=== PATIENT | female | born 1985 | race Caucasian/White ===

== ENCOUNTER 2016-08-29 20:28 | Emergency (ER) | payer BC ==
[~2016-08-29] VITALS: Ht 165.1 cm; Wt 85.2 kg
[~2016-08-29 20:28] MED LIST: ALEVE PM CAPLE1 EACH PO; ATHENOL325 MG PO; CELEXA2 MG/1 ML PO; CITALOPRAM HBR20 MG PO; NOHOMEMEDS; ORTHO TRI-CY1 TABLE1 PO; TESSALON PERLE100 MG PO; TRINESSA1 EACH PO; ULTRAM50 MG PO; ZYRTEC SYRUP1 MG/ML PO
[2016-08-29 21:19] LABS: ADD MIUA? YES; BILIRUBIN NEGATIVE; BLOOD LARGE; COLOR YELLOW ((YELLOW)); GLUCOSE (STRIP) NEGATIVE; KETONES NEGATIVE; LEUKOCYTES NEGATIVE; NITRITE NEGATIVE; PROTEIN (STRIP) 30; SPECIFIC GRAVITY 1.029 (1.000-1.030); UROBILINOGEN 0.2 MG/DL (0.2-1.0)
[2016-08-29 21:25] LABS: BACTERIA RARE /HPF; EPITHELIAL CELLS 1+ /HPF; MUCUS 4+ /LPF; RED BLOOD CELLS TNTC /HPF (0-5); UCUL ADDED? NO; WHITE BLOOD CELLS 0-5 /HPF (0-5)
[2016-08-29 21:41] LABS: HEMATOCRIT 42.8 % (36.0-46.0); MCHC 32.2 G/DL (30.0-36.0); MEAN PLAT.VOLUME 9.5 uM^3 (9.5-12.4); PLATELET COUNT 316 K/uL (156-360); RBC DIS.WIDTH-CV 11.8 % (11.8-14.6); RBC DIS.WIDTH-SD 40.8 % (39-53); WHITE BLOOD COUNT 7.3 K/uL (4.1-10.2)
[2016-08-29 21:51] LABS: CHLORIDE 105 mEq/L (99-109); POTASSIUM 3.7 mEq/L (3.7-5.4); SODIUM 141 mEq/L (136-147)
[2016-08-29 21:54] LABS: GLUCOSE 81 mg/dL (70-99)
[2016-08-29 21:55] LABS: ANION GAP 13 MEQ/L (2-14)
[2016-08-29 21:57] LABS: ALKALINE PHOSPHATASE 95 IU/L (3-129); GFR ESTIMATE (CALCULATED) > 59 mL/min/
[2016-08-29 21:58] LABS: UREA NITROGEN (BUN) 12 mg/dL (9-23)
[2016-08-29 22:06] LABS: QUANTITATIVE HCG < 4.0 MIU/ML
[2016-08-29] MEDS ORDERED: TORADOL10 MG PO (23:37)
[2016-08-29] MEDS ORDERED: ZOFRAN ODT4 MG PO (23:37)
[2016-08-29] MEDS ORDERED: PERCOCET 5/31 TABLET PO (23:37)
[2016-08-29 23:38] VITALS: BP 140/95
== END 2016-08-29 23:44 | disposition home or self-care (01) ==
LOC: EXP 20:28 → EME 20:28 → EXP 23:44
DX: N20.1 Calculus of ureter (principal); Z87.442 Personal history of urinary calculi; Z87.891 Personal history of nicotine dependence
CPT/HCPCS: 74176; 80053; 81003; 84702; 85027; 99281; 99284

== ENCOUNTER 2016-12-05 19:26 | Emergency (ER) | payer BC ==
[~2016-12-05] VITALS: Ht 165.1 cm; Wt 85.6 kg
[~2016-12-05 19:26] MED LIST changes: +PERCOCET 5/31 TABLET PO; +TORADOL10 MG PO; +ZOFRAN ODT4 MG PO
[2016-12-05 19:29] VITALS: BP 116/78
[2016-12-05] MEDS ORDERED: ATIVAN0.5 MG PO (20:46)
[2016-12-05] MEDS ORDERED: PROMETHAZINE HC25 M1 PO (20:46)
[2016-12-05] MEDS ORDERED: KRATOM PO (20:47)
[2016-12-05] MEDS ORDERED: FLEXERIL10 MG PO (21:32)
[2016-12-05] MEDS ORDERED: LIDODERM 5% P1 PATCH TD (21:32)
[2016-12-05] MEDS ORDERED: PREDNISONE20 MG PO (21:35)
== END 2016-12-05 23:01 | disposition home or self-care (01) ==
LOC: EME 19:26 → EXP 19:26
DX: M25.512 Pain in left shoulder (principal); M62.838 Other muscle spasm
CPT/HCPCS: 73030; 99281; 99283

== ENCOUNTER 2017-10-01 17:03 | Emergency (ER) | payer BC ==
[~2017-10-01] VITALS: Ht 165.1 cm; Wt 80.7 kg
[~2017-10-01 17:03] MED LIST changes: +ATIVAN0.5 MG PO; +FLEXERIL10 MG PO; +KRATOM PO; +LIDODERM 5% P1 PATCH TD; +PREDNISONE20 MG PO; +PROMETHAZINE HC25 M1 PO
[2017-10-01] MEDS ORDERED: PERCOCET 5/31 TABLET PO (18:14)
[2017-10-01 18:43] VITALS: BP 113/81
== END 2017-10-01 18:46 | disposition home or self-care (01) ==
LOC: EME 17:03
PROC: 3E0234Z Introduction of Serum, Toxoid and Vaccine into Muscle, Percutaneous Approach (ICD-10-PCS; principal; 2017-10-01)
DX: S61.451A Open bite of right hand, initial encounter (principal); L03.113 Cellulitis of right upper limb; W55.01XA Bitten by cat, initial encounter; Z23 Encounter for immunization; Z20.3 Contact with and (suspected) exposure to rabies; K21.9 Gastro-esophageal reflux disease without esophagitis; F32.9 Major depressive disorder, single episode, unspecified; Z88.0 Allergy status to penicillin; F17.200 Nicotine dependence, unspecified, uncomplicated
CPT/HCPCS: 73130; 99281; 99284